=== PATIENT | female | born 1950 | race Caucasian/White ===

== ENCOUNTER 2017-04-24 20:11 | Emergency (ER) | payer BC, MEDICARE ==
[~2017-04-24 20:11] MED LIST: BISA-229 PO; CHOL400C10 PO; CIPR-344 PO; LIDO700A29 TD; PER PO; [UNRECOGNIZED DRUG - OTHER]
[2017-04-24 20:18] VITALS: BP 121/82
[2017-04-24] MEDS ORDERED: MULT1CAP59 PO (20:20)
--- NOTE | 2017-04-24 20:23 | ER Report ---
History and Physical Time Seen By MD: 20:23 Hx. of Stated Complaint: COLD SYMPTOMS FOR 3 DAYS. SINUS PRESSURE, COUGH, SCRATCHY THROAT HPI/ROS CHIEF COMPLAINT: cough HISTORY OF PRESENT ILLNESS: This is a 67 year old female. She is having cough, scratchy throat and congestion for 2-3 days now. She has a headache and some sinus pressure in frontal area as well. No known sick contacts. No nausea or vomiting. Mild shortness of breath. No abdominal pain. No chest pain. Normal bowels and bladder function. Allergies: Coded Allergies: No Known Drug Allergies (Verified , 04/24/17) Home Meds Active Scripts Benzonatate 100 Mg Cap (TESSALON PERLE 100 MG CAP) 100 Mg Capsule, 100 MG PO TID , #15 CAP 0 Refills Prov:PRASHANTH RUSSELL MD 04/24/17 Oseltamivir Phosphate (TAMIFLU) 75 Mg Cap, 75 MG PO BID, #10 CAP 0 Refills Prov:PRASHANTH RUSSELL MD 04/24/17 Reported Medications Multivitamin (MULTIVITAMINS) 1 Each Capsule, 1 EACH PO, CAPSULE 04/24/17 Discontinued Reported Medications Ciprofloxacin Hcl (CIPRO) 500 Mg Tablet, 500 MG PO BID, #6 12/01/12 Bisacodyl (DULCOLAX) 5 Mg Tablet.dr, 5 MG PO, #4 12/01/12 Lidocaine (LIDODERM) 700 Mg Adh..patch, 1 - 3 PATCH TD QDAY 12/01/12 Oxycodone/Acetaminophen (OXYCODONE/ACETAMINOPHEN 5MG/325 MG) 5 Mg/325 Mg Tab, 1 - 2 TAB PO Q4-6H, 0 Refills no alcohol/driving 08/25/09 Cholecalciferol (Vitamin D) 400 Unit Capsule, 400 UNIT PO DAILY, 0 Refills 08/25/09 [Low Estrogen Tab] No Conflict Check, 0 Refills 08/25/09 Reviewed Nurses Notes: Yes Hx Smoking: Yes Hx Substance Use Disorder: No Hx Alcohol Use: No Constitutional Vital Sign - Last 24 Hours 04/24/17 04/24/17 20:18 21:34 Temp 100.5 Pulse 91 87 Resp 16 B/P (MAP) 121/82 Pulse Ox 93 97 O2 Delivery Room Air Physical Exam General Appearance: The patient is alert, has no immediate need for airway protection and no current signs of toxicity. Eyes: Pupils equal and round no injection. ENT: Normal oral mucosa. Moist mucous membranes. Posterior oropharynx with post nasal drainage and erythema. Tympanic membranes are normal. Neck: Neck is supple and non tender. Respiratory: Chest is non tender, lungs are clear to auscultation. Cardiac: regular rate and rhythm Gastrointestinal: Abdomen is soft and non tender, no masses, bowel sounds normal. Musculoskeletal: Extremities have full range of motion. Skin: No rashes or lesions. DIFFERENTIAL DIAGNOSIS: After history and physical exam differential diagnosis was considered for upper respiratory infection, will check for influenza and rule out pulmonary infectious process. Medical Decision Making Data Points Laboratory Hematology Test 04/24/17 20:30 Influenza Virus Type A (PCR) Negative (NEGATIVE) Influenza Virus Type B (PCR) Positive (NEGATIVE) Chemistry Test 04/24/17 20:30 Influenza Virus Type A (PCR) Negative (NEGATIVE) Influenza Virus Type B (PCR) Positive (NEGATIVE) EKG/Imaging Imaging Examination: CHEST PA AND LAT Comparison: None. History: cough Findings: No consolidation, nodule, or peribronchial inflammation. No pneumothorax, edema, or effusion. Cardiac and hilar contour size is normal. Visualized bowel gas pattern is unremarkable. Osseous structures are intact. IMPRESSION: Negative chest. Report Dictated By: Ralf Rascon MD at 04/24/2017 8:59 PM ED Course/Re-evaluation ED Course Influenza B positive. Chest x-ray negative. Discussed with patient and will begin Tamiflu and give Benzonatate for cough. Decision to Disposition Date: Apr 24, 2017 Decision to Disposition Time: 21:14 Depart Departure Latest Vital Signs Vital Signs Date Time Temp Pulse Resp B/P (MAP) Pulse Ox O2 Delivery O2 Flow Rate FiO2 04/24/17 21:34 87 97 Room Air 04/24/17 20:18 100.5 16 121/82 Impression: Primary Impression: Influenza B Condition: Improved Disposition: HOME OR SELF-CARE New Scripts Benzonatate 100 Mg Cap (TESSALON PERLE 100 MG CAP) 100 Mg Capsule 100 MG PO TID, #15 CAP 0 Refills Prov: PRASHANTH RUSSELL MD 04/24/17 Oseltamivir Phosphate (TAMIFLU) 75 Mg Cap 75 MG PO BID, #10 CAP 0 Refills Prov: PRASHANTH RUSSELL MD 04/24/17 Patient Instructions: Influenza (ED) Additional Instructions: Rest and increase fluid intake over the next few days. Take Tylenol or Ibuprofen as needed for fever or pain. Take Benzonatate 100mg capsules, one every 8 hours as needed for cough. Take Tamiflu 75mg, twice a day for 5 days. PRASHANTH RUSSELL MD Apr 24, 2017 20:23
--- NOTE | 2017-04-24 21:05 | RADIOLOGY IMAGING REPORT ---
FACILITY: [facility] PATIENT NAME: Graciela Herman : 1950 MR: [id number] V: [id number] EXAM DATE: ORDERING PHYSICIAN: PRASHANTH RUSSELL TECHNOLOGIST: Location: [facility] Patient: Graciela Herman : 1950 Visit/Account:[id number] Date of Sevice: 04/24/2017 Examination: CHEST PA AND LAT Comparison: None. History: cough Findings: No consolidation, nodule, or peribronchial inflammation. No pneumothorax, edema, or effusio n. Cardiac and hilar contour size is normal. Visualized bowel gas pattern is unremarkable. Osseous st ructures are intact. IMPRESSION: Negative chest. Report Dictated By: Ralf Rascon MD at 04/24/2017 8:59 PM Report E-Signed By: Ralf Rascon MD at 04/24/2017 9:00 PM [id number]
[2017-04-24] MEDS ORDERED: OSELTAMIVIR PHOS 75 MG CAP PO ONE (21:15)
[2017-04-24] MEDS ORDERED: OSE75 PO (21:15)
[2017-04-24] MEDS ORDERED: BENZ100C4 PO (21:15)
[2017-04-24] MEDS ORDERED: BENZONATATE 100 MG CAP PO ONE (21:15)
== END 2017-04-24 21:36 | disposition home or self-care (01) ==
LOC: ER 20:32
DX: J11.1 Influenza due to unidentified influenza virus with other respiratory manifestations (principal)
CPT/HCPCS: 71046; 87502; 99282; A9270